=== PATIENT | female | born 1965 | race Caucasian/White ===

== ENCOUNTER 2022-02-16 21:02 | Emergency (ER) | payer OTHER ==
[~2022-02-16] VITALS: Ht 162.6 cm; Wt 65.0 kg
[~2022-02-16 21:02] MED LIST: AMOXICILLIN500 M1 OR; BACTRIM DS1 TAB PO; CEPHALEXIN500 M1 PO; DUONEB IN; LEXAPRO10 MG OR; LORTAB 5 OR; MAXAIR AUTOH200 MCG IN; MEDDOSEPAK PO; PERCOCET 5/325M1 TAB OR; REGLAN10 MG OR; ROBITUSSIN AC10 ML OR; SINGULAIR10 MG OR; SYNTHROID175 MCG OR
[2022-02-16 21:48] LABS: HEMOGLOBIN 13.4 g/dl (12.0-16.0); IMMATURE GRANULOCYTES 0.2 % (0.0-5.0); MEAN CELL VOLUME 89.7 fL CALC (80.0-100.0); MEAN CORPUSCULAR HGB CONC 33.5 g/dL CAL (32.0-36.0); NEUT# 4.99 thou/uL (2.00-7.15); RED BLOOD COUNT 4.46 mill/uL (4.20-5.60); RED CELL DISTRI WIDTH 12.9 % (11.5-15.5)
[2022-02-16 22:20] LABS: ALBUMIN 4.3 g/dL (3.2-5.0); ALKALINE PHOSPHATASE 66 u/l (38-126); ANION GAP 13 (6-22 (CALC)); BILIRUBIN, TOTAL 0.3 mg/dL (0.0-1.4); BUN 15 mg/dL (7-17); BUN/CREATININE RATIO 12 (12-20 (CALC)); CARBON DIOXIDE 24 mmol/l (22-30); CHLORIDE 104 mmol/l (95-108); CREATININE 1.2 mg/dL (0.5-1.0); GFR 46 ML/MIN (>=60 (CALC)); GFR FOR AFR.AMER. 56 ML/MIN (>=60 (CALC)); POTASSIUM 3.4 mmol/l (3.5-5.1); SGOT/AST 20 u/l (14-36); SODIUM 138 mmol/l (137-146)
[2022-02-16 22:30] VITALS: BP 134/75
[2022-02-16 22:32] LABS: MYOGLOBIN 17 ng/mL (0 - 62)
[2022-02-16 22:51] LABS: TSH, 3RD GENERATION 1.95 uIU/mL (0.47 - 4.68)
[2022-02-16 23:01] VITALS: BP 106/58
[2022-02-16 23:30] VITALS: BP 104/53
[2022-02-17 00:16] VITALS: BP 107/45
[2022-02-17] MEDS ORDERED: ONDANSETRON4 MG PO (00:21)
[2022-02-17 00:30] VITALS: BP 130/71
[2022-02-17 00:45] VITALS: BP 130/71
[2022-02-17] MEDS ORDERED: MEDDOSEPAK PO (03:32)
== END 2022-02-17 00:45 | disposition home or self-care (01) | DRG 897 ==
LOC: ED 21:02
PROVIDERS: Emergency Medicine
DX: F12.980 Cannabis use, unspecified with anxiety disorder (principal); J45.909 Unspecified asthma, uncomplicated
CPT/HCPCS: J2060

== ENCOUNTER 2022-05-25 17:53 | Emergency (ER) | payer OTHER ==
[~2022-05-25] VITALS: Ht 162.6 cm; Wt 72.0 kg
[~2022-05-25 17:53] MED LIST changes: +ONDANSETRON4 MG PO
[2022-05-25] MEDS ORDERED: VIBRAMYCIN100 M2 PO (18:29)
[2022-05-25 18:31] VITALS: BP 141/89
[2022-05-25] MEDS ORDERED: TRAMADOL HCL50 MG PO (18:32)
== END 2022-05-25 18:46 | disposition home or self-care (01) | DRG 603 ==
LOC: ED 17:53
DX: L02.31 Cutaneous abscess of buttock (principal); B95.7 Other staphylococcus as the cause of diseases classified elsewhere; J45.909 Unspecified asthma, uncomplicated